=== PATIENT | female | born 1945 | race Caucasian/White ===

== ENCOUNTER 2016-07-15 21:52 | Emergency (ER) | payer MEDICARE, OTHER ==
[~2016-07-15] VITALS: Ht 154.9 cm; Wt 83.5 kg
[2016-07-15] VITALS (7 sets, daily range): BP systolic 91–116; BP diastolic 55–79; PULSE 66–147; RESP 17–20; O2SAT 98–99
[~2016-07-15 21:52] MED LIST: ALEN70 PO; CALC600T34 PO; CLON.5 PO; CYMB60CA PO; OMEP20CA5 PO; PRED2.5T4 PO; TAB-TAB PO; VITA400C28 PO
[2016-07-15] MEDS ORDERED: DILTIAZEM HCL 25 MG/5 ML VIAL IVP ONE (22:15)
[2016-07-15] MEDS ORDERED: DILTIAZEM INJ 125 MG in SODIUM CHLORIDE 0.9% INJ 100 ML IV SCH (22:15)
[2016-07-15] MEDS ORDERED: SODIUM CHLORIDE 0.9% FLUSH 10 ML FLUSH IVF PRN (22:15)
[2016-07-15 22:27] LABS: AUTOMATED NEUTROPHIL # 10.2 TH/MM3 (1.8-7.7); BASOPHIL # 0.1 TH/MM3 (0-0.2); BASOPHIL % 0.5 % (0.0-2.0); EOSINOPHIL # 0.1 TH/MM3 (0-0.4); EOSINOPHIL % 0.6 % (0.0-4.0); HEMATOCRIT 35.9 % (35.0-46.0); HEMO FLAGS DIFF FINAL; LYMPH % 13.6 % (9.0-44.0); LYMPHOCYTE # 1.8 TH/MM3 (1.0-4.8); MEAN CELL VOLUME 79.9 FL (80.0-100.0); MEAN CORPUSCULAR HEMOGLOBIN 25.3 PG (27.0-34.0); MEAN CORPUSCULAR HGB CONC 31.7 % (32.0-36.0); MONO % 6.1 % (0.0-8.0); NEUT % 79.2 % (16.0-70.0); PLATELET COUNT 327 TH/MM3 (150-450); RED CELL DISTRIBUTION WIDTH 17.6 % (11.6-17.2)
[2016-07-15 22:35] LABS: CHLORIDE 109 MEQ/L (98-107); POTASSIUM 4.9 MEQ/L (3.5-5.1); SODIUM (NA) 140 MEQ/L (136-145)
[2016-07-15 22:39] LABS: ANION GAP 10 MEQ/L (5-15); BICARBONATE 20.6 MEQ/L (21.0-32.0); BLOOD UREA NITROGEN 26 MG/DL (7-18); MAGNESIUM 2.5 MG/DL (1.5-2.5)
[2016-07-15 22:40] LABS: APTT (PATIENT) 25.2 SEC (24.3-30.1); PROTHROMBIN TIME - PATIENT 11.3 SEC (9.8-11.6)
--- NOTE | 2016-07-15 22:40 | RADHPO ---
EXAM DATE/TIME: 07/15/2016 22:28 [place] COMPARISON: No previous studies available for comparison. INDICATIONS : Irregular heart rate starting today MEDICAL HISTORY : A-fib SURGICAL HISTORY : None. ENCOUNTER: Initial ACUITY: 1 day PAIN SCORE: 0/10 LOCATION: Bilateral chest FINDINGS: PA and lateral views of the chest demonstrate the lungs to be symmetrically aerated without evidence of mass, infiltrate or effusion. The cardiomediastinal contours are unremarkable. Osseous structure s are intact. CONCLUSION: No acute disease. Heladio Talbot Jr., MD on July 15, 2016 at 22:38 Board Certified Radiologist. This report was verified electronically.
[2016-07-15 22:42] LABS: ALT (GPT) 189 U/L (10-53); AST (GOT) 213 U/L (15-37); GLOMERULAR FILTRATION RATE 64 ML/MIN (>89)
--- NOTE | 2016-07-15 22:43 | PD ---
HPI Chief Complaint: fast heart rate Time Seen by Provider: 22:08 Travel History International Travel<30 days: No Contact w/Intl Traveler<30days: No Traveled to known affect area: No History of Present Illness HPI The patient is a 70-year-old female with a history of intermittent atrial fibrillation who complains of a fast heart rate for 6 hours. She denies any chest pain or chest tightness or shortness of breath or diaphoresis. She states that before the beginning of her atrial fibrillation she feels a tightness around her neck but it goes away as soon as he atrial fibrillation begins. This only last for a few seconds and it happened today. She has no other symptoms at this time. She denies any syncopal or near syncopal spells. She took 325 mg Lopressor at the beginning of this episode, her complaints coordinator told her to take this to see if this would not convert. It did not convert this time. She takes eliquis regularly for her atrial fibrillation. PFSH Past Medical History Cancer: No Diabetes: No Glaucoma: No Hepatitis: No Hiatal Hernia: No Hypertension: No Thyroid Disease: No Past Surgical History Genitourinary Surgery: Yes (BLADDER REPAIR) Gynecologic Surgery: Yes (HYSTERECTOMY) Pacemaker: No Social History Alcohol Use: Yes (GLASS WINE BEFORE BED) Tobacco Use: No Allergies-Medications (Allergen,Severity, Reaction): Coded Allergies: Bactrim (Unverified Allergy, Severe, ITCHING, 07/15/16) Amoxicillin (Unverified Allergy, Intermediate, ITCHING, 07/15/16) Penicillin (Unverified Allergy, Unknown, 07/15/16) PT STATES SHE NEVER HAD A REACTION TO PCN Reported Meds & Prescriptions Reported Meds & Active Scripts Active Reported Calcium 600 Mg Tab 600 Mg PO BID Vitamin D 400 Unit Tab 1,000 Mg PO DAILY Multivitamin (Multivitamins) 1 Tab Tab 1 Tab PO DAILY Fosamax (Alendronate Sodium) 70 Mg Tab 70 Mg PO WEEKLY Deltasone (Prednisone) 2.5 Mg Tab 2.5 Mg PO BID Cymbalta (Duloxetine HCl) 60 Mg Cap 60 Mg PO DAILY Klonopin (Clonazepam) 0.5 Mg Tab 0.5 Mg PO HS Prilosec (Omeprazole) 20 Mg Capcr 20 Mg PO DAILY Review of Systems Except as stated in HPI: all other systems reviewed are Neg Physical Exam Narrative GENERAL: The patient is alert, oriented 3 in no apparent distress. Her vital signs are normal except for heart rate of 150. SKIN: Focused skin assessment warm/dry. HEAD: Atraumatic. Normocephalic. EYES: Pupils equal and round. No scleral icterus. No injection or drainage. ENT: No nasal bleeding or discharge. Mucous membranes pink and moist. NECK: Trachea midline. No JVD. CARDIOVASCULAR: Regular tachycardia. No murmur appreciated. RESPIRATORY: No accessory muscle use. Clear to auscultation. Breath sounds equal bilaterally. GASTROINTESTINAL: Abdomen soft, non-tender, nondistended. Hepatic and splenic margins not palpable. MUSCULOSKELETAL: No obvious deformities. No clubbing. No cyanosis. No edema. NEUROLOGICAL: Awake and alert. No obvious cranial nerve deficits. Motor grossly within normal limits. Normal speech. PSYCHIATRIC: Appropriate mood and affect; insight and judgment normal. Data Data Last Documented VS Vital Signs Date Time Temp Pulse Resp B/P Pulse Ox O2 Delivery O2 Flow Rate FiO2 07/15/16 22:40 74 19 116/56 98 Room Air Orders Vital Signs (Adult) [id number],Q4H (07/15/16 22:12) Gage Maker / Telemetry CHRISTINA.Q8H (07/15/16 22:12) Cardiac Rhythm CHRISTINA.Q8H (07/15/16 22:12) Notify Dr: Other (07/15/16 22:12) Diltiazem Inj (Cardizem Inj) (07/15/16 22:15) Diltiazem Inj (Cardizem Inj) (07/15/16 22:15) Diltiazem Inj (Cardizem Inj) (07/15/16 22:45) Electrocardiogram (07/15/16 22:15) B-Type Natriuretic Peptide (07/15/16 22:15) Complete Blood Count With Diff (07/15/16 22:15) Comprehensive Metabolic Panel (07/15/16 22:15) Magnesium (Mg) (07/15/16 22:15) Prothrombin Time / Inr (Pt) (07/15/16 22:15) Act Partial Throm Time (Ptt) (07/15/16 22:15) Troponin I (07/15/16 22:15) Ecg Monitoring (07/15/16 22:15) Iv Access Insert/Monitor (07/15/16 22:15) Oximetry (07/15/16 22:15) Oxygen Administration (07/15/16 22:15) Sodium Chloride 0.9% Flush (Ns Flush) (07/15/16 22:15) Chest, Pa & Lat (07/15/16 22:15) Electrocardiogram (07/15/16 22:43) Labs Laboratory Tests Test 07/15/16 22:20 White Blood Count 13.0 TH/MM3 Red Blood Count 4.50 MIL/MM3 Hemoglobin 11.4 GM/DL Hematocrit 35.9 % Mean Corpuscular Volume 79.9 FL Mean Corpuscular Hemoglobin 25.3 PG Mean Corpuscular Hemoglobin 31.7 % Concent Red Cell Distribution Width 17.6 % Platelet Count 327 TH/MM3 Mean Platelet Volume 7.9 FL Neutrophils (%) (Auto) 79.2 % Lymphocytes (%) (Auto) 13.6 % Monocytes (%) (Auto) 6.1 % Eosinophils (%) (Auto) 0.6 % Basophils (%) (Auto) 0.5 % Neutrophils # (Auto) 10.2 TH/MM3 Lymphocytes # (Auto) 1.8 TH/MM3 Monocytes # (Auto) 0.8 TH/MM3 Eosinophils # (Auto) 0.1 TH/MM3 Basophils # (Auto) 0.1 TH/MM3 CBC Comment DIFF FINAL Differential Comment Prothrombin Time 11.3 SEC Prothromb Time International 1.0 RATIO Ratio Activated Partial 25.2 SEC Thromboplast Time Sodium Level 140 MEQ/L Potassium Level 4.9 MEQ/L Chloride Level 109 MEQ/L Carbon Dioxide Level 20.6 MEQ/L Anion Gap 10 MEQ/L Blood Urea Nitrogen 26 MG/DL Creatinine 0.88 MG/DL Estimat Glomerular Filtration 64 ML/MIN Rate Random Glucose 167 MG/DL Calcium Level 8.8 MG/DL Magnesium Level 2.5 MG/DL Total Bilirubin 0.5 MG/DL Aspartate Amino Transf 213 U/L (AST/SGOT) Alanine Aminotransferase 189 U/L (ALT/SGPT) Alkaline Phosphatase 128 U/L Troponin I LESS THAN 0.02 NG/ML B-Type Natriuretic Peptide 171 PG/ML Total Protein 6.8 GM/DL Albumin 3.6 GM/DL MDM Medical Decision Making Medical Screen Exam Complete: Yes Emergency Medical Condition: Yes Medical Record Reviewed: Yes Interpretation(s) The EKG shows junctional tachycardiaaccelerated junctional rhythm with no acute change. No acute ST elevation or depression is present. The complete metabolic profile shows a bicarbonate of 20.6, glucose 167, AST of 213, ALT of 189 and alkaline phosphatase of 128 but is otherwise normal. The BNP is 171. The troponin I is less than 0.02. The white count is 13,000 with 79% neutrophils and a hemoglobin of 11.4 but is otherwise unremarkable. The coagulation profile is normal. Differential Diagnosis Atrial fibrillation with RVR, sinus tachycardia, junctional tachycardia Narrative Course After only 10 mg IV of Cardizem the patient converted to sinus rhythm. The time of the conversion was 10:35 PM. The patient has a slight elevation of the liver enzymes, this etiology is unknown. Perhaps the Cymbalta is elevating the liver enzymes. She denies any history of liver disease. It is now 11 PM and the patient still is in sinus rhythm and she will be discharged. Diagnosis Primary Impression: Accelerated junctional rhythm Additional Impression: Liver enzyme elevation Additional Instructions: If this happens again, take your Lopressor as outlined by her complaints coordinator. Give your complaints coordinator a call tomorrow morning and explained what happened. Disposition: 01 DISCHARGE HOME Condition: Stable Javi Baker MD July 15, 2016 22:43
[2016-07-15 22:44] LABS: TOTAL BILIRUBIN ADULT 0.5 MG/DL (0.2-1.0)
[2016-07-15 22:45] LABS: ALKALINE PHOSPHATASE 128 U/L (45-117)
[2016-07-15] MEDS ORDERED: DILTIAZEM HCL 25 MG/5 ML VIAL IVP PRN (22:45)
[2016-07-15] MEDS ORDERED: METO25TA3 PO (23:10)
[2016-07-15] MEDS ORDERED: BUPR150CR PO (23:10)
[2016-07-15] MEDS ORDERED: APIX5TAB PO (23:10)
[2016-07-15] MEDS ORDERED: OMEP20TA PO (23:10)
[2016-07-15] MEDS ORDERED: CLON.5 PO (23:10)
[2016-07-15] MEDS ORDERED: CYMB60CA PO (23:10)
[2016-07-15] MEDS ORDERED: CYMB30CA PO (23:10)
[2016-07-16 00:12] VITALS: BP 98/66
[2016-07-16 00:30] VITALS: BP 140/79; PULSE 82; RESP 16; O2SAT 98
--- NOTE | 2016-07-16 07:24 | EKG ---
Date Performed: 07/15/2016 Time Performed: 22:01:08 PTAGE: 70 years EKG: Probable accelerated junctional rhythm Inferior/lateral ST-T changes are nonspecific Abnorm al ECG NO PREVIOUS TRACING DOCTOR: Johnathan Morrell Interpretating Date/Time 07/16/2016 07:23:47
--- NOTE | 2016-07-16 11:50 | EKG ---
Date Performed: 07/15/2016 Time Performed: 22:47:00 PTAGE: 70 years EKG: Sinus rhythm with PAC(s). Borderline ECG PREVIOUS TRACING : 07/15/2016 22.01 Compared to the previous tracing, now in sinus rhythm DOCTOR: Johnathan Morrell Interpretating Date/Time 07/16/2016 11:48:28
== END 2016-07-16 00:11 | disposition home or self-care (01) ==
LOC: PHED 21:52
DX: I49.8 Other specified cardiac arrhythmias (principal); R74.8 Abnormal levels of other serum enzymes; Z79.899 Other long term (current) drug therapy; Z88.0 Allergy status to penicillin; Z88.1 Allergy status to other antibiotic agents
CPT/HCPCS: 71020; 80053; 83735; 83880; 84484; 85025; 85610; 85730; 93005; 96374; 96375

== ENCOUNTER 2017-07-12 03:42 | Emergency (ER) | payer MEDICARE, OTHER ==
[~2017-07-12] VITALS: Ht 160 cm; Wt 88.4 kg
[~2017-07-12 03:42] MED LIST changes: -ALEN70 PO; +APIX5TAB PO; +BUPR150CR PO; -CALC600T34 PO; +CYMB30CA PO; +METO25TA3 PO; -OMEP20CA5 PO; +OMEP20TA93 PO; -PRED2.5T4 PO; -TAB-TAB PO; -VITA400C28 PO
[2017-07-12 03:47] VITALS: BP 122/58; PULSE 83; RESP 18; TEMP 97.7; O2SAT 100
--- NOTE | 2017-07-12 04:27 | PD ---
HPI Chief Complaint: Fall Time Seen by Provider: 04:00 Travel History International Travel<30 days: No Contact w/Intl Traveler<30days: No Traveled to known affect area: No History of Present Illness HPI Patient states that she had a trip and fall landing on a on the rim of a bucket. She developed some bruising to her left inner thigh. Patient denies having any blunt head trauma or really hitting any other part of her body. She was only concerned because she is on Xarelto for her atrial fibrillation, and her bruising started to spread over her medial thigh. PFSH Past Medical History Hx Anticoagulant Therapy: Yes Atrial Fibrillation: Yes (with ablation) Depression: Yes Cancer: No Cardiovascular Problems: Yes Diabetes: No GERD: Yes Glaucoma: No Hepatitis: No Hiatal Hernia: No Hypertension: No Immune Disorder: Yes (pmr) Thyroid Disease: No ?: Not Menopausal: Yes Past Surgical History Cholecystectomy: Yes Genitourinary Surgery: Yes (BLADDER REPAIR) Gynecologic Surgery: Yes (HYSTERECTOMY) Hysterectomy: Yes Pacemaker: No Other Surgery: Yes (GASTRIC BY-PASS 2002) Social History Alcohol Use: Yes (GLASS WINE BEFORE BED) Tobacco Use: Yes Allergies-Medications (Allergen,Severity, Reaction): Coded Allergies: sulfamethoxazole (Unverified Allergy, Severe, ITCHING, 07/12/17) trimethoprim (Unverified Allergy, Severe, ITCHING, 07/12/17) amoxicillin (Unverified Allergy, Intermediate, ITCHING, 07/12/17) penicillin G (Unverified Allergy, Unknown, 07/12/17) PT STATES SHE NEVER HAD A REACTION TO PCN Reported Meds & Prescriptions Reported Meds & Active Scripts Active Reported Metoprolol Tartrate 25 Mg Tab 25 Mg PO BID Eliquis (Apixaban) 5 Mg Tab 5 Mg PO BID Wellbutrin SR 12 HR (Bupropion HCl) 150 Mg Tab 150 Mg PO Q12HR Klonopin (Clonazepam) 0.5 Mg Tab 0.5 Mg PO BID Cymbalta DR (Duloxetine HCl) 60 Mg Capdr 60 Mg PO DAILY Cymbalta DR (Duloxetine HCl) 30 Mg Capdr 30 Mg PO HS Omeprazole 20 Mg Tab 20 Mg PO DAILY Review of Systems General / Constitutional: No: Fever Eyes: No: Visual changes HENT: No: Headaches Cardiovascular: No: Chest Pain or Discomfort Respiratory: No: Shortness of Breath Gastrointestinal: No: Abdominal Pain Genitourinary: No: Dysuria Musculoskeletal: No: Pain Skin: Positive Other (Bruising to left medial thigh) Neurologic: No: Weakness Psychiatric: No: Depression Endocrine: No: Polydipsia Hematologic/Lymphatic: No: Easy Bruising Physical Exam Narrative GENERAL: SKIN: Warm and dry. HEAD: Atraumatic. Normocephalic. EYES: Pupils equal and round. No scleral icterus. No injection or drainage. ENT: No nasal bleeding or discharge. Mucous membranes pink and moist. NECK: Trachea midline. No JVD. CARDIOVASCULAR: Regular rate and rhythm. RESPIRATORY: No accessory muscle use. Clear to auscultation. Breath sounds equal bilaterally. GASTROINTESTINAL: Abdomen soft, non-tender, nondistended. MUSCULOSKELETAL: Extremities without clubbing, cyanosis, or edema. No obvious deformities. Patient already has nonpitting edema consistent with lymphedema. Noted on her left medial thigh, patient has ecchymosis, all different compartments are soft to touch. All pulses distally are within normal limits at the popliteal and dorsalis pedis as well as femoral pulses. NEUROLOGICAL: Awake and alert. No obvious cranial nerve deficits. Motor grossly within normal limits. Five out of 5 muscle strength in the arms and legs. Normal speech. PSYCHIATRIC: Appropriate mood and affect; insight and judgment normal. Data Data Last Documented VS Vital Signs Date Time Temp Pulse Resp B/P (MAP) Pulse Ox O2 Delivery O2 Flow Rate FiO2 07/12/17 03:47 97.7 83 18 122/58 (79) 100 MDM Medical Decision Making Medical Screen Exam Complete: Yes Emergency Medical Condition: Yes Medical Record Reviewed: Yes Differential Diagnosis Contusion versus compartment syndrome versus fracture Narrative Course Clinically the patient only has a contusion over her left medial thigh, no evidence of any compartment syndrome, patient has soft compartments throughout anterior medial and posterior compartments. Neurovascular intact... The patient will have Darvin wrap placed on her thigh circumferentially to try and decrease the amount of swelling that is collecting locally and improve circulation. The patient was advised to also wear LORRIE stockings, which the patient states that she wears anyway. Patient also advised to keep her left thigh elevated above her heart level to improve drainage. And patient was also advised to place ice Additionally the patient does not have any crepitus or deformities or referred pain with examination of entire extremity Diagnosis Primary Impression: Thigh contusion Qualified Codes: S70.12XA - Contusion of left thigh, initial encounter Patient Instructions: Contusion in Adults (ED), General Instructions Disposition: 01 DISCHARGE HOME Condition: Stable Yeyo Cristobal MD July 12, 2017 04:27
[2017-07-12] MEDS ORDERED: PRED1 PO (04:43)
[2017-07-12] MEDS ORDERED: XARE20TA PO (04:43)
[2017-07-12] MEDS ORDERED: PRED5TAB PO (04:43)
== END 2017-07-12 05:02 | disposition home or self-care (01) ==
LOC: PHED 03:42
DX: S70.12XA Contusion of left thigh, initial encounter (principal); W01.198A Fall on same level from slipping, tripping and stumbling with subsequent striking against other object, initial encounter; F32.9 Major depressive disorder, single episode, unspecified; I48.91 Unspecified atrial fibrillation; K21.9 Gastro-esophageal reflux disease without esophagitis; Z79.01 Long term (current) use of anticoagulants; Z72.0 Tobacco use
CPT/HCPCS: 99282